=== PATIENT | female | born 1985 | race American Indian/Alaskan Native ===

== ENCOUNTER 2020-10-19 00:27 | Emergency (ER) | payer OTHER ==
[2020-10-19 06:11] LABS: Basophils # (Auto) 0.1 K/mm3 (0.0-0.1); Basophils % (Auto) 0.6 % (0.0-1.8); Eosinophils # (Auto) 0.3 K/mm3 (0.0-0.4); Eosinophils % (Auto) 2.7 % (0.0-4.3); Lymphocytes # (Auto) 2.5 K/mm3 (1.2-5.4); Mean Corpuscular HGB Conc 30 % (30-34); Monocytes # (Auto) 0.8 K/mm3 (0.0-0.8); Monocytes % (Auto) 6.4 % (0.0-7.3); Platelet Count 312 K/mm3 (140-440); Red Blood Count 4.39 M/mm3 (3.65-5.03); Red Cell Distribution Width 19.1 % (13.2-15.2)
[2020-10-19 06:15] LABS: Hemoglobin 8.2 gm/dl (10.1-14.3)
--- NOTE | 2020-10-19 06:15 | Ultrasound Report ---
ULTRASOUND PELVIS INDICATION: Vaginal spotting. TECHNIQUE: Transabdominal. Transvaginal. Duplex Color Doppler used: Yes. COMPARISON: None available FINDINGS: Uterus: Present. Size: 8.8 x 5.3 x 6.6 cm. Endometrial complex: Early intrauterine dated 6 weeks 4 days. heart tones not seen at this time. A yolk sac is also present. Mass lesions: None. Additional findings: None. Right Ovary -- Normal. Blood flow: Normal. Cyst or mass: 9 millimeters cyst. Left Ovary-- Normal. Blood flow: Normal. Cyst or mass: None. Urinary Bladder: Normal. Free Fluid: None. Additional Findings: None. IMPRESSION: 1. Early intrauterine dated 6 weeks 4 days. No heart tones seen at this time. 2. Small physiologic cyst right ovary. Signer Name: Robby Oquendo MD Signed: 10/19/2020 6:11 AM Workstation Name: [id number]
[2020-10-19 06:16] LABS: Hematocrit 27.8 % (30.3-42.9); Mean Corpuscular Volume 63 fl (79-97)
[2020-10-19 08:08] LABS: Alanine Aminotransferase 10 units/L (7-56); Albumin 4.3 g/dL (3.9-5); Blood Urea Nitrogen 10 mg/dL (7-17); Hemolysis Index 0
--- NOTE | 2020-10-19 08:13 | Emergency Department Report ---
ED HPI - General Chief complaint: Vaginal Bleeding Stated complaint: 10 WKS PREG/BLEEDING Time Seen by Provider: 10/19/20 06:55 Source: patient Mode of arrival: Ambulatory Limitations: No Limitations - History of Present Illness Initial comments: This is a pleasant 35-year-old G1, P0 female presents the emergency department with chief complaint of vaginal spotting. Patient reports she is approximately 10 weeks based on her last menstrual cycle of August 10. She reports around 4 weeks she started to have some spotting and then last night she had some spotting again. She denies any abdominal pain, fever, chills, night sweats, headache, dizziness, blurry vision, nausea, vomiting, diarrhea, chest pain, shortness of breath, weakness or any other associated symptoms. - Related Data Allergies Allergy/AdvReac Type Severity Reaction Status Date / Time No Known Allergies Allergy Unverified 10/19/20 03:57 ED Review of Systems ROS: Stated complaint: 10 WKS PREG/BLEEDING Other details as noted in HPI Comment: All other systems reviewed and negative Constitutional: denies: chills, fever Eyes: denies: eye pain, eye discharge, vision change ENT: denies: ear pain, throat pain Respiratory: denies: cough, shortness of breath, wheezing Cardiovascular: denies: chest pain, palpitations Endocrine: no symptoms reported Gastrointestinal: denies: abdominal pain, nausea, diarrhea Genitourinary: as per HPI. denies: urgency, dysuria, discharge Musculoskeletal: denies: back pain, joint swelling, arthralgia Skin: denies: rash, lesions Neurological: denies: headache, weakness, paresthesias Psychiatric: denies: anxiety, depression Hematological/Lymphatic: denies: easy bleeding, easy bruising ED Physical Exam - General Limitations: No Limitations General appearance: alert, in no apparent distress - Head Head exam: Present: atraumatic, normocephalic - Eye Eye exam: Present: normal appearance, PERRL, EOMI Pupils: Present: normal accommodation - ENT ENT exam: Present: normal exam, normal orophraynx, mucous membranes moist - Neck Neck exam: Present: normal inspection, full ROM. Absent: tenderness, meningismus - Respiratory Respiratory exam: Present: normal lung sounds bilaterally. Absent: respiratory distress, wheezes, rales, rhonchi, stridor, chest wall tenderness - Cardiovascular Cardiovascular Exam: Present: regular rate, normal rhythm, normal heart sounds. Absent: systolic murmur, diastolic murmur, rubs, gallop - GI/Abdominal GI/Abdominal exam: Present: soft, normal bowel sounds. Absent: distended, tenderness, guarding, rebound, rigid - Extremities Exam Extremities exam: Present: normal inspection, full ROM, normal capillary refill. Absent: tenderness, calf tenderness - Back Exam Back exam: Present: normal inspection, full ROM. Absent: tenderness, CVA tenderness (R), CVA tenderness (L) - Neurological Exam Neurological exam: Present: alert, oriented X3, CN II-XII intact - Psychiatric Psychiatric exam: Present: normal affect, normal mood - Skin Skin exam: Present: warm, dry, intact, normal color. Absent: rash ED Course - Reevaluation(s) Reevaluation #1: 10/19/20 09:18 The patient's lab work and urine returned relatively normal. Ultrasound showed an intrauterine that is early with a yolk sac but no pole or cardiac activity yet. The patient was educated that the is only measuring 6 weeks and not her suspected 10 weeks that could be related to an early versus a possible missed . Recommended [facility] follow-up which she has an appointment in 2 days. Recommend she return to the emergency department immediately she develops any change or worsening symptoms such as heavy vaginal bleeding, greater than 1 pad per hour, severe abdominal pain, dizziness, weakness or any other associated symptoms. Ectopic was ruled out with a intrauterine identified. ED Medical Decision Making - Lab Data Result diagrams: 10/19/20 05:21 10/19/20 04:32 - Radiology Data Radiology results: report reviewed, image reviewed ULTRASOUND PELVIS INDICATION: Vaginal spotting. TECHNIQUE: Transabdominal. Transvaginal. Duplex Color Doppler used: Yes. COMPARISON: None available FINDINGS: Uterus: Present. Size: 8.8 x 5.3 x 6.6 cm. Endometrial complex: Early intrauterine dated 6 weeks 4 days. heart tones not seen at this time. A yolk sac is also present. Mass lesions: None. Additional findings: None. Right Ovary -- Normal. Blood flow: Normal. Cyst or mass: 9 millimeters cyst. Left Ovary-- Normal. Blood flow: Normal. Cyst or mass: None. Urinary Bladder: Normal. Free Fluid: None. Additional Findings: None. IMPRESSION: 1. Early intrauterine dated 6 weeks 4 days. No heart tones seen at this time. 2. Small physiologic cyst right ovary. Signer Name: Robby Oquendo MD Signed: 10/19/2020 6:11 AM Workstation Name: [id number] - Medical Decision Making Patient hemodynamically stable in no acute distress. Ultrasound showed an intrauterine ruling out ectopic. She is tolerating p.o. fluids. Abdominal exam was benign. [facility] follow-up in 2 days which she already has an appointment. Return precautions discussed - Differential Diagnosis Ectopic , threatened miscarriage, missed Critical care attestation.: If time is entered above; I have spent that time in minutes in the direct care of this critically ill patient, excluding procedure time. ED Disposition Clinical Impression: Threatened miscarriage in early Disposition: 01 HOME / SELF CARE / HOMELESS Is pt being admited?: No Condition: Stable Instructions: Threatened Miscarriage, Vaginal Bleeding During , First Trimester Additional Instructions: pelvic rest, no sex or tampons, nothing in the vagina. return if bleeding greater than 1 pad per hour, sever abdominal pain, weakness or dizziness. Referrals: [facility] [Provider Group] - 3-5 Days Forms: Work/School Release Form(ED) Time of Disposition: 09:20
[2020-10-19 08:31] LABS: BUN/Creatinine Ratio 17
[2020-10-19 10:46] LABS: Bilirubin,Urine NEG (Negative); Blood,Urine NEG (Negative); Color,Urine Yellow (Yellow); Mucus,Urine FEW /HPF; Protein,Urine <15 mg/dL mg/dL (Negative); Urobilinogen,Urine < 2.0 mg/dL (<2.0)
== END 2020-10-19 09:26 | disposition home or self-care (01) ==
LOC: ED 00:27
DX: O20.0 Threatened abortion (principal); Z3A.10 10 weeks gestation of pregnancy
CPT/HCPCS: 36415; 76801; 76817; 80053; 81001; 84702; 84703; 85025; 86900; 86901; 99283; 99284

== ENCOUNTER 2020-10-21 14:58 | Emergency (ER) | payer OTHER ==
[2020-10-21 17:00] VITALS: BP 155/80
[2020-10-21 17:54] LABS: Basophils # (Auto) 0.1 K/mm3 (0.0-0.1); Basophils % (Auto) 0.5 % (0.0-1.8); Eosinophils # (Auto) 0.2 K/mm3 (0.0-0.4); Eosinophils % (Auto) 1.7 % (0.0-4.3); Hematocrit 26.7 % (30.3-42.9); Lymphocytes # (Auto) 1.4 K/mm3 (1.2-5.4); Lymphocytes % (Auto) 12.3 % (13.4-35.0); Mean Corpuscular HGB Conc 30 % (30-34); Monocytes # (Auto) 0.6 K/mm3 (0.0-0.8); Monocytes % (Auto) 5.4 % (0.0-7.3); Platelet Count 326 K/mm3 (140-440); Red Blood Count 4.24 M/mm3 (3.65-5.03); Red Cell Distribution Width 19.2 % (13.2-15.2)
[2020-10-21 18:07] LABS: Mean Corpuscular Volume 63 fl (79-97)
--- NOTE | 2020-10-21 19:03 | Emergency Department Report ---
ED HPI - General Chief complaint: Abdominal Pain Stated complaint: CRAMPING Time Seen by Provider: 10/21/20 16:27 Source: patient Mode of arrival: Ambulatory Limitations: No Limitations - History of Present Illness Initial comments: This is a 35-year-old female nontoxic, well nourished in appearance, no acute signs of distress presents to the ED with c/o of vaginal bleeding and pelvic pains x several days. Patient stated today she has worsening vaginal bleeding and saw "tissue come out". Patient denies any upper abdominal. Stated has some pelvic cramping. Patient denies any vaginal discharge or foul odor. Patient denies any nausea, vomiting, chest pain, shortness of breathe, fever, chills, headache, stiff neck, numbness, tingling. Patient denies any urinary symptoms. Patient denies any allergies or PMH. Stated follows-up with [facility]. -: days(s) Location: pelvis Radiation: none Severity: mild Severity scale (0 -10): 3 Quality: cramping Consistency: intermittent Improves with: none Worsens with: none Associated symptoms: vaginal bleeding. denies: nausea/vomiting, vaginal discharge, abdominal pain, dysuria, headache, vision changes, malaise, dysparuenia, rash, seizure, shortness of breath, syncope, weakness Vaginal bleeding: light :: Yes Number of weeks : 10 Pre- care: followed by OB - Related Data Allergies Allergy/AdvReac Type Severity Reaction Status Date / Time No Known Allergies Allergy Unverified 10/19/20 03:57 ED Review of Systems ROS: Stated complaint: CRAMPING Other details as noted in HPI Comment: All other systems reviewed and negative Constitutional: denies: chills, fever Eyes: denies: eye pain, eye discharge, vision change ENT: denies: ear pain, throat pain Respiratory: denies: cough, shortness of breath, wheezing Cardiovascular: denies: chest pain, palpitations Endocrine: no symptoms reported Gastrointestinal: denies: abdominal pain, nausea, diarrhea Genitourinary: abnormal menses. denies: urgency, dysuria, discharge Musculoskeletal: denies: back pain, joint swelling, arthralgia Skin: denies: rash, lesions Neurological: denies: headache, weakness, paresthesias Psychiatric: denies: anxiety, depression Hematological/Lymphatic: denies: easy bleeding, easy bruising ED Physical Exam - General Limitations: No Limitations General appearance: alert, in no apparent distress - Head Head exam: Present: atraumatic, normocephalic - Eye Eye exam: Present: normal appearance - Neck Neck exam: Present: normal inspection, full ROM. Absent: lymphadenopathy - Respiratory Respiratory exam: Absent: respiratory distress - Cardiovascular Cardiovascular Exam: Present: regular rate - GI/Abdominal GI/Abdominal exam: Present: soft, normal bowel sounds. Absent: distended, tenderness, guarding, rebound, rigid, diminished bowel sounds - Extremities Exam Extremities exam: Present: full ROM - Back Exam Back exam: Present: normal inspection, full ROM. Absent: tenderness, CVA tender ness (R), CVA tenderness (L), muscle spasm, paraspinal tenderness, vertebral tenderness, rash noted - Neurological Exam Neurological exam: Present: alert, oriented X3, normal gait - Psychiatric Psychiatric exam: Present: normal affect, normal mood - Skin Skin exam: Present: warm, dry, intact, normal color. Absent: rash ED Course Vital Signs 10/21/20 16:55 Temperature 98.0 F Pulse Rate 80 Respiratory 20 Rate Blood Pressure 155/80 O2 Sat by Pulse 99 Oximetry - Reevaluation(s) Reevaluation #1: 10/21/20 19:08 Patient is speaking in full sentences with no signs of distress noted. ED Medical Decision Making - Lab Data Result diagrams: 10/21/20 16:30 Lab Results 10/21/20 10/21/20 Range/Units 16:30 16:30 WBC 11.3 H (4.5-11.0) K/mm3 RBC 4.24 (3.65-5.03) M/mm3 Hgb 8.0 L (10.1-14.3) gm/dl Hct 26.7 L (30.3-42.9) % MCV 63 L (79-97) fl MCH 19 L (28-32) pg MCHC 30 (30-34) % RDW 19.2 H (13.2-15.2) % Plt Count 326 (140-440) K/mm3 Lymph % (Auto) 12.3 L (13.4-35.0) % Rogers % (Auto) 5.4 (0.0-7.3) % Eos % (Auto) 1.7 (0.0-4.3) % Baso % (Auto) 0.5 (0.0-1.8) % Lymph # (Auto) 1.4 (1.2-5.4) K/mm3 Rogers # (Auto) 0.6 (0.0-0.8) K/mm3 Eos # (Auto) 0.2 (0.0-0.4) K/mm3 Baso # (Auto) 0.1 (0.0-0.1) K/mm3 Seg Neutrophils % 80.1 H (40.0-70.0) % Seg Neutrophils # 9.0 H (1.8-7.7) K/mm3 HCG, Quant 1983 H (0-4) mIU/mL - Medical Decision Making 35-year-old female that presents with vaginal bleeding during . Patient is stable and was examined by me. Labs has been obtained. UA ordered and ultrasound has been ordered and pending. Patient stated she has to leave and patient was educated of my concerns for further evaluation, treatment and proper disposition but patient refused and sign AGAINST MEDICAL ADVICE. Patient stated she will call her OBGYN tomorrow. Patient was instructed of consequences if not properly treated such as disability, worsening condition and or the patient still refused and sign against medical advise. Patient was instructed to follow-up with a [facility] doctor as soon as possible or if symptoms worsen and continue return to emergency room as soon as possible. At time of signing AMA, the patient does not seem toxic or ill in appearance. No acute signs of distress noted. No further questions noted by the patient. Critical care attestation.: If time is entered above; I have spent that time in minutes in the direct care of this critically ill patient, excluding procedure time. ED Disposition Clinical Impression: Vaginal bleeding during Disposition: 07 LEFT AGAINST MEDICAL ADVICE Is pt being admited?: No Condition: Undetermined Instructions: Abdominal Pain (ED) Additional Instructions: Your condition may be serious as instructed and educated today in the ER but you decided to leave AGAINST MEDICAL ADVICE. It is highly recommended to see a provider as soon as possible to rule out serious complications that was described to you during your ED stay. Follow-up with a OBGYN doctor as soon as possible or if symptoms worsen and continue return to emergency room as soon as possible. Referrals: PRIMARY CARE, [Primary Care Provider] - 3-5 Days [facility] [Provider Group] - [place] Forms: AMA Form Time of Disposition: 19:00
--- NOTE | 2020-10-21 19:45 | Ultrasound Report ---
ULTRASOUND PELVIS INDICATION: pelvic pain and vaginal bleeding. TECHNIQUE: Transabdominal. Transvaginal Duplex Color Doppler used: Yes. COMPARISON: None available FINDINGS: Uterus: Present. Size: 9.8 x 5.5 x 5.8 cm. Endometrial complex: Possible gestational sac with a yolk sac lower uterine segment dated 7 weeks 4 d ays. Thickened measuring 2.4 cm. Mass lesions: 1.2 cm fibroid at the posterior uterine body. Additional findings: None. Right Ovary -- Normal. Blood flow: Normal. Cyst or mass: 2.4 cm complex cyst. Left Ovary-- Normal. Blood flow: Normal. Cyst or mass: None. Urinary Bladder: Normal. Free Fluid: None. Additional Findings: None. IMPRESSION: 1. Suspected gestational sac containing a yolk sac at the lower uterine segment. Endometrial stripe i s thickened. 2. Complex cyst right ovary. Signer Name: Robby Oquendo MD Signed: 10/21/2020 7:41 PM Workstation Name: [id number]
[2020-10-21 19:48] LABS: Bilirubin,Urine NEG (Negative); Blood,Urine LG (Negative); Color,Urine Yellow (Yellow); Mucus,Urine FEW /HPF; Protein,Urine <15 mg/dL mg/dL (Negative); Urobilinogen,Urine < 2.0 mg/dL (<2.0)
[2020-10-21 19:50] LABS: RBC,Urine > 182.0 /HPF (0.0-6.0)
== END 2020-10-22 18:46 | disposition left against medical advice (07) ==
LOC: ED 14:58
DX: O20.9 Hemorrhage in early pregnancy, unspecified (principal); Z3A.01 Less than 8 weeks gestation of pregnancy
CPT/HCPCS: 36415; 76801; 76817; 81001; 84702; 85025; 99284

== ENCOUNTER 2021-07-13 08:22 | Inpatient (IN) | payer OTHER, MEDICAID ==
--- NOTE | 2021-07-13 12:22 | History and Physical Report ---
History of Present Illness Date of examination: 07/13/21 Date of admission: July 13, 2021 Chief complaint: Induction of labor History of present illness: 35-year-old -0-1-0 at 37 and 3 weeks presents for induction of labor secondary to chronic hypertension and gestational diabetes. The patient initiated care at [facility] at 14 weeks estimated gestational age. Her course is also complicated by morbid obesity. Past History Past Medical History: hypertension, other (Gestational diabetes) Past Surgical History: no surgical history Social history: single - Obstetrical History Expected Date of Delivery: 07/31/21 Actual Gestation: 37 Week(s) 3 Day(s) : 2 Para: 0 Hx # Term Pregnancies: 0 Number of Pregnancies: 0 Spontaneous Abortions: 1 Induced : 0 Number of Living Children: 0 Medications and Allergies Allergies Allergy/AdvReac Type Severity Reaction Status Date / Time bee venom protein (honey bee) Allergy Intermediate Swelling Verified 07/13/21 09:19 Home Medications Medication Instructions Recorded Confirmed Last Taken Type Aspirin [Aspirin BABY CHEW TAB] 81 mg PO QDAY 07/13/21 07/13/21 07/13/21 History 1 Ferrous Sulfate [Iron 325 MG] 325 mg PO TID 07/13/21 07/13/21 07/13/21 History 1 Pnv No.153/FA/Om3/Dha/Epa/Fish 2 tab PO DAILY 07/13/21 Unknown History [[facility]vs Gummies] Pnv No.153/FA/Om3/Dha/Epa/Fish 2 tab PO DAILY 07/13/21 07/13/21 07/13/21 History [[employer]vs Gummies] 1 labetaloL [Labetalol 100mg TAB] 100 mg PO BID 07/13/21 07/13/21 07/13/21 History 1 Review of Systems All systems: negative Genitourinary: no leakage of fluid, no contractions - Vital Signs Vital signs: Vital Signs Temp Resp Pulse Ox 98.6 F 20 98 07/13/21 08:45 07/13/21 08:45 07/13/21 08:45 Temp Pulse Resp BP Pulse Ox 98.6 F 91 H 20 139/117 98 07/13/21 08:45 07/13/21 12:14 07/13/21 08:45 07/13/21 11:53 07/13/21 12:14 - Physical Exam Breasts: Positive: deferred Cardiovascular: Regular rate Lungs: Positive: Clear to auscultation Results All other labs normal. Assessment and Plan - Patient Problems (1) Chronic hypertension affecting Current Visit: Yes Status: Acute Plan to address problem: Patient being admitted for induction of labor GBS status is negative (2) Gestational diabetes Current Visit: Yes Status: Acute (3) Morbid obesity Current Visit: Yes Status: Acute
[2021-07-13] MEDS ORDERED: NalbUPHINE 10 MG/1 ML INJ IV PRN (12:55)
[2021-07-13] MEDS ORDERED: OXYTOCIN 10 UNIT/1 ML INJ IM PRN (12:55)
[2021-07-13] MEDS ORDERED: METHYLERGONOVINE MALEATE 0.2 MG/ML VIAL IM PRN (12:55)
[2021-07-13] MEDS ORDERED: TERBUTALINE 1 MG/1 ML INJ SUB-Q PRN (12:55)
[2021-07-13] MEDS ORDERED: LOPERAMIDE 2 MG CAP PO PRN (12:55)
[2021-07-13] MEDS ORDERED: miSOPROStol 200 MCG TAB PR PRN (12:55)
[2021-07-13] MEDS ORDERED: LIDOCAINE (2%) 20 MG/1 ML VIAL 20 ML MDV INFILTRATI ONE (12:55)
[2021-07-13] MEDS ORDERED: MINERAL OIL 30 ML ORAL LIQD PO PRN (12:55)
[2021-07-13] MEDS ORDERED: ONDANSETRON 4 MG/2 ML INJ IV PRN (12:55)
[2021-07-13] MEDS ORDERED: OXYTOCIN DRIP 30 UNITS/500 ML BAG IV SCH ×2 (13:00)
[2021-07-13] MEDS ORDERED: ACETAMINOPHEN 325 MG TAB PO PRN (13:30)
[2021-07-13] MEDS ORDERED: BUTORPHANOL 2 MG/1 ML INJ IV PRN ×2 (13:30)
[2021-07-13] MEDS ORDERED: DINOPROSTONE 10 MG VAG SUPP VG SCH (13:30)
[2021-07-13] MEDS ORDERED: CARBOPROST TROMETHAMINE 250 MCG/1 ML INJ IM PRN (13:30)
[2021-07-13 13:38] LABS: Hematocrit 36.5 % (30.3-42.9); Hemoglobin 11.2 gm/dl (10.1-14.3); Mean Corpuscular HGB Conc 31 % (30-34); Platelet Count 174 K/mm3 (140-440); Red Blood Count 5.24 M/mm3 (3.65-5.03); Red Cell Distribution Width 15.3 % (13.2-15.2)
[2021-07-13 13:50] LABS: Mean Corpuscular Volume 70 fl (79-97)
[2021-07-13] MEDS: fentaNYL 100 MCG/2 ML INJ IV PRN ×2 (18:23→21:39)
[2021-07-13] MEDS: LACTATED RINGERS 1,000 ML IV SCH (18:28)
[2021-07-13] MEDS: hydrALAZINE 20 MG/1 ML INJ IV PRN ×2 (20:56→22:37)
[2021-07-13] MEDS ORDERED: ZOLPIDEM 5 MG TAB PO ONE (23:42)
--- NOTE | 2021-07-14 01:59 | Anesthesia Consultation ---
Anesthesia Consult and Med Hx Date of service: 07/14/21 - Airway Anesthetic Teeth Evaluation: Poor ROM Head & Neck: Adequate Mental/Hyoid Distance: Adequate Mallampati Class: Class III Intubation Access Assessment: Probably Good - Pulmonary Exam CTA: Yes - Cardiac Exam Cardiac Exam: RRR - Pre-Operative Health Status ASA Pre-Surgery Classification: ASA3 Proposed Anesthetic Plan: Epidural - Pulmonary Hx Smoking: No Hx Asthma: Yes (Pediatric) Hx Respiratory Symptoms: No SOB: No COPD: No Home Oxygen Therapy: No - Cardiovascular System Hx Hypertension: Yes - Central Nervous System Hx Neuromuscular Disorder: No Hx Seizures: No Hx Psychiatric Problems: No - Endocrine Hx Renal Disease: No Hx Non-Insulin Dependent Diabetes: Yes Hx Hypothyroidism: No Hx Hyperthyroidism: No - Hematic Hx Anemia: No Hx Sickle Cell Disease: No - Other Systems Hx Alcohol Use: No Hx Substance Use: No Hx Obesity: Yes
[2021-07-14] MEDS: ePHEDrine SULFATE 50 MG/1 ML INJ IV PRN ×2 (02:05→02:13)
--- NOTE | 2021-07-14 02:05 | Progress Note ---
Labor Epidural - Labor Epidural Start Time: 01:30 Stop Time: :44 Performed by:: BERKLEY VILLANUEVA Procedure: Patient is requesting epidural for labor pain. H&P and labs reviewed. Procedure explained, questions answered, consent obtained. Patient placed in sitting position with monitors applied. Timeout performed immediately before start of procedure. Prep/drape in usual sterile fashion. Skin localized 3 mL 1% lidocaine at L[3]-L[4] interspace. 17-gauge Touhy epidural needle advanced to DIANNE with saline at [9] cm. No blood/CSF noted via epidural needle. Epidural catheter advanced to [12] cm. Negative aspiration for blood and CSF via catheter, negative response to test dose 3 ml 1.5% lidocaine w/ Epi. Sterile dressing applied followed by tape reinforcement. Patient tolerated procedure well. No immediate complications noted.
[2021-07-14] MEDS: LACTATED RINGERS 1,000 ML IV SCH ×2 (02:22→02:24)
[2021-07-14] MEDS ORDERED: ePHEDrine SULFATE 50 MG/1 ML INJ IM ONE (02:30)
[2021-07-14] MEDS ORDERED: ePHEDrine SULFATE 50 MG/1 ML INJ IV ONE (02:37)
[2021-07-14] MEDS ORDERED: NALOXONE 2 MG/2 ML INJ IV PRN (03:14)
[2021-07-14] MEDS ORDERED: ePHEDrine SULFATE 50 MG/1 ML INJ IV PRN (03:14)
[2021-07-14] MEDS ORDERED: fentaNYL-BUPIV 2 MCG/ML-0.125% 200 MCG/100 ML BAG EPIDURAL SCH (04:00)
[2021-07-14] MEDS ORDERED: LIDOCAINE (2%) 20 MG/1 ML VIAL 20 ML MDV INFILTRATI ONE (04:42)
--- NOTE | 2021-07-14 04:56 | Procedure Note ---
OB Delivery Note - Delivery Date of Delivery: 07/14/21 Surgeon: BERTA CLARKE Estimated blood loss: 300cc - Vaginal Delivery presentation: vertex Delivery position: OA Delivery induction: cervidil Delivery monitor: external FHT, external uterine Route of delivery: Delivery placenta: spontaneous Delivery cord: 3 umbilical vessels Episiotomy: none Delivery laceration: 2nd degree Delivery repair: vicryl Anesthesia: local, epidural - A at 1 minute: 8 at 5 minutes: 9 Infant Gender: Female (Weight 6 pounds 6 ounces)
[2021-07-14] MEDS ORDERED: PROMETHAZINE 25 MG TAB PO PRN (04:58)
[2021-07-14] MEDS ORDERED: LANOLIN/ZINC/DIMETHICONE (LANSINOH) 7 GM TP PRN (04:58)
[2021-07-14] MEDS ORDERED: ACETAMINOPHEN 325 MG TAB PO PRN (04:58)
[2021-07-14] MEDS ORDERED: MAGNESIUM HYDROXIDE (MOM) ORAL LIQD UDC PO PRN (04:58)
[2021-07-14] MEDS ORDERED: WITCH HAZEL/ GLYCERIN PAD TP PRN (04:58)
[2021-07-14] MEDS ORDERED: oxyCODONE /ACETAMINOPHEN 5-325MG TAB PO PRN (04:58)
[2021-07-14] MEDS ORDERED: diphenhydrAMINE 25 MG CAP PO PRN (04:58)
[2021-07-14] MEDS ORDERED: PROMETHAZINE 25 MG RECT SUPP PR PRN (04:58)
[2021-07-14] MEDS ORDERED: ONDANSETRON 4 MG/2 ML INJ IV PRN (04:58)
[2021-07-14] MEDS: IBUPROFEN 800 MG TAB PO SCH ×2 (11:00→22:46)
--- NOTE | 2021-07-14 11:53 | Post Anesthesia Evaluation ---
- Post Anesthesia Evaluation Patient Participated: Yes Airway Patent: Yes Stable Respiratory Function: Yes Nausea/Vomiting: No Temp > 96.8F: Yes Pain Manageable: Yes Adequeate Hydration: Yes Anesthesia Complications: No Block Receding Appropriately: Yes Patient on Ventilator: No
[2021-07-14 17:27] LABS: Hematocrit 33.1 % (30.3-42.9); Hemoglobin 10.5 gm/dl (10.1-14.3)
[2021-07-15] MEDS: IBUPROFEN 800 MG TAB PO SCH ×2 (05:49→11:34)
--- NOTE | 2021-07-15 08:43 | Discharge Summary ---
Providers - Providers Date of Admission: 07/13/21 08:23 Date of discharge: 07/15/21 Attending physician: BERTA CLARKE Primary care physician: BERTA CLARKE Hospitalization Reason for admission: induction of labor Delivery: Episiotomy: none Laceration: 2nd degree (healing as expected) Other procedures: none complications: none Discharge diagnosis: IUP at term delivered [place] baby: female Hospital course: 5-year-old -0-1-0 at 37 and 3 weeks presents for induction of labor secondary to chronic hypertension and gestational diabetes. The patient initia kavya care at [facility] at 14 weeks estimated gestational age. Her course is also complicated by morbid obesity. Delivered viable female via . course has been uncomplicated and desires to go home if is ok for discharge also. Condition at discharge: Good Disposition: 01 HOME / SELF CARE / HOMELESS - Discharge Diagnoses (1) Status post normal vaginal delivery Status: Acute (2) Chronic hypertension affecting Status: Acute Comment: B/Ps stable (3) Gestational diabetes Status: Acute Qualifiers: Gestational diabetes mellitus control: diet-controlled (4) Morbid obesity Status: Acute Plan - Discharge Medications Prescriptions: Ibuprofen [Motrin 800 MG tab] 800 mg PO Q8HR #30 tablet - Provider Discharge Summary Activity: routine, no sex for 6 weeks, no heavy lifting 4 weeks, no strenuous exercise Diet: other (Iron rich diet) Instructions: routine Additional instructions: [] Smoking cessation referral if applicable(refer to patient education folder for contact #) [] Refer to [facility] Booklet Call your doctor immediately for: * Fever > 100.5 * Heavy vaginal bleeding ( >1 pad per hour) * Severe persistent headache * Shortness of breath * Reddened, hot, painful area to leg or breast * Drainage or odor from incision. * Keep laceration site clean and dry at all times and follow doctor's instructions regarding bathing/showering * Notify office for any severe blood pressures or visual changes immediately - Follow up plan Follow up: BERTA CLARKE MD [Primary Care Provider] - 6 Weeks
[2021-07-15 15:52] VITALS: BP 156/77
== END 2021-07-15 19:55 | disposition home or self-care (01) | DRG 806 ==
LOC: TRG 08:22 → LD 08:22 → TRG 11:59 → OB 07-14 07:02
PROVIDERS: ADMIT Obstetrics & Gynecology; ATTEND Obstetrics & Gynecology
PROC: 10E0XZZ Delivery of Products of Conception, External Approach (ICD-10-PCS; principal; 2021-07-14)
PROC: 0KQM0ZZ Repair Perineum Muscle, Open Approach (ICD-10-PCS; 2021-07-14)
PROC: 3E0R3BZ Introduction of Anesthetic Agent into Spinal Canal, Percutaneous Approach (ICD-10-PCS; 2021-07-14)
PROC: 00HU33Z Insertion of Infusion Device into Spinal Canal, Percutaneous Approach (ICD-10-PCS; 2021-07-14)
DX: O24.420 Gestational diabetes mellitus in childbirth, diet controlled (principal); O10.92 Unspecified pre-existing hypertension complicating childbirth; Z37.0 Single live birth; Z3A.37 37 weeks gestation of pregnancy; Z20.822 Contact with and (suspected) exposure to COVID-19; O99.214 Obesity complicating childbirth; E66.01 Morbid (severe) obesity due to excess calories; O70.1 Second degree perineal laceration during delivery
CPT/HCPCS: 36415; 59200; 82962; 85014; 85018; 85027; 86592; 86850; 86900; 86901; 99211; G0378; J3490; G0463; J0360; J3010; J7120; U0003